=== PATIENT | female | born 1995 | race Caucasian/White ===

== ENCOUNTER 2017-01-06 10:54 | Outpatient (CLI) | payer OTHER ==
[2014-04-24 21:03] VITALS: BP 112/58
== END 2017-01-06 10:55 ==
LOC: LABRHC 10:54
PROVIDERS: ATTEND Physician Assistant
DX: R30.0 Dysuria (principal)
CPT/HCPCS: 87086; 87186

== ENCOUNTER 2017-06-11 19:24 | Emergency (ER) | payer OTHER ==
--- NOTE | 2017-06-11 19:40 | ED Physician Documentation ---
Upper Extremity Injury - HISTORIAN Historian: patient - HPI Chief Complaint: Upper Extremity Injury Onset: just prior to arrival Context: fall (Patient fell and landed on her RUE, No other injuries noted. ) Associated Symptoms: denies: numbness distally, feeling loss Modifying Factors: pain on movement - ROS CONST: no problems. denies: fever, chills - PAST HX Past History: Rt handed, other (adthma) Allergies/Adverse Reactions: Allergies Allergy/AdvReac Type Severity Reaction Status Date / Time No Known Drug Allergies Allergy Verified 06/11/17 19:34 Home Medications: Ambulatory Orders Medication Instructions Recorded Sertraline HCl [Zoloft] 50 mg PO DAILY 06/11/17 - SOCIAL HX Smoking History: less than 1 pack/day (5 per day) Alcohol Use: rarely Drug Use: none - FAMILY HX Family History: no significant history - VITAL SIGNS Vital Signs: Vital Signs Temp Pulse Resp BP Pulse Ox 72 16 105/63 98 06/11/17 20:19 06/11/17 20:19 06/11/17 20:19 06/11/17 20:19 ED Results Lab/Radiology - Radiology Radiology Impressions: Right forearm 2 views History: Pain after fall Findings: The right forearm is unremarkable without fracture, dislocation, arthropathy, or focal bone lesion. - Orders Orders: ED Orders Category Date Time Status FOREARM 2 VIEWS [RAD] Stat Exams 06/11/17 Taken Upper Extremity Injury Physic - Physical Exam General Appearance: alert, moderate distress Hand: normal inspection, non-tender, no evidence of injury, normal ROM Wrist: normal inspection, non-tender, no evidence of injury, normal ROM Elbow/Forearm: No: normal ROM (due to pain), abrasions, bone tenderness, deformity, ecchymosis, limited ROM Shoulder: normal inspection, non-tender, no evidence of injury, normal ROM Neuro/Vascular/Tendon: no vascular compromise, motor nml, sensation nml Skin: No: warm,dry, diaphoretic, cool Resp/CVS: chest non-tender, breath sounds nml, heart sounds nml, no resp. distress, lungs clear, reg. rate & rhythm Discharge Clincal Impression: Contusion of right forearm, initial encounter Referrals: Primary Doctor,No [Primary Care Provider] - 2 Days Additional Instructions: Apply a cool compress to the area of pain for 30 minutes at a time for the next 24 hours. Take some Aleve 2 tablets with food twice a day for the next 2 days. If symptoms do not improve to follow-up with your primary care provider. Condition: Stable Disposition: 01 HOME, SELF-CARE Decision to Admit: NO Date of Decison to Admit: 06/11/17 Decision Time: 20:08
[2017-06-11 19:41] VITALS: BP 105/63
--- NOTE | 2017-06-12 01:44 | Diagnostic Imaging Report ---
SYLVIA MELARA [facility] [id number] [facility].[address] [id number] Report Submission Date: Jun 11, 2017 8:05:48 PM CDT Patient Study Name: SHIVAM BECERRIL Date: Jun 11, 2017 7:52:01 PM CDT Modality Type: CR Gender: F Description: UPPER EXTREMITY : 89 Institution: [facility] Physician: SYLVIA MELARA Right forearm 2 views History: Pain after fall Findings: The right forearm is unremarkable without fracture, dislocation, arthropathy, or focal bone lesion. Electronically signed on Jun 11, 2017 8:05:48 PM CDT by: Derrick ACHARYA
== END 2017-06-11 20:19 | disposition home or self-care (01) ==
LOC: ED 19:24
DX: S50.11XA Contusion of right forearm, initial encounter (principal); X58.XXXA Exposure to other specified factors, initial encounter; Y93.9 Activity, unspecified; Y99.9 Unspecified external cause status
CPT/HCPCS: 73090; 99283

== ENCOUNTER 2017-09-09 16:51 | Outpatient (CLI) | payer OTHER | END 2017-09-09 16:52 | LOC: LABRHC 16:51 | PROVIDERS: ATTEND Physician Assistant | DX: R30.0 Dysuria (principal) | CPT/HCPCS: 87086; 87186 ==

== ENCOUNTER 2017-10-20 10:01 | Emergency (ER) | payer OTHER ==
[2017-10-20 11:19] LABS: BASOPHILS % 0.3 (0.0-1.5); EOSINOPHILS % 3.4 % (0.0-6.8); MEAN CORPUSCULAR HEMOGLOBIN 30.8 pg (28.0-34.0); MEAN CORPUSCULAR VOLUME 92.3 fl (80.0-100.0); MONOCYTES % 4.9 % (0.0-11.0); NEUTROPHILS # 5.8 # k/uL (1.4-7.7)
[2017-10-20 11:23] LABS: CANNABINOIDS NEGATIVE ng/mL (< 50); METHYLENEDIOXYMETHAMPHETAMINE NEGATIVE ng/mL (<500)
[2017-10-20 11:24] LABS: APPEARANCE,URINE CLEAR (CLEAR); COLOR,URINE YELLOW (YELLOW)
[2017-10-20 11:25] LABS: OCCULT BLOOD,URINE NEGATIVE (NEGATIVE); UROBILINOGEN URINE 0.2 Eu (0.2-1.0)
[2017-10-20 12:12] LABS: eGFR (African) > 60; eGFR (Non-African) > 60
--- NOTE | 2017-10-20 12:15 | ED Physician Documentation ---
Chest Pain - HISTORIAN Historian: patient - HPI Stated Complaint: chest pain Chief Complaint: General Adult Timing: sudden onset Duration: waxing, waning Last known Well Date: 10/20/17 Last Known Well Time: 10:00 Context: emotional upset, activity Severity: moderate Quality: sharp, stabbing Chest Pain Radiation: no radiation Chest Pain Signs/Symptoms: denies: nausea, vomiting, diaphoresis, cool extremities, dizziness, dyspnea, tachypnea, tachycardia, hypotension, palpitations, weakness, other Worsened By: nothing Relieved By: nothing Further Comments: yes (22 year old female patient presents with complaint of chest pain that started while at work today. 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 Patient works at local [employer]. Denies SOB, nausea, radiation or diaphoresis.) - ROS CONST: none MS/LYMPH: none GI/: none EYES/ENT: none SKIN/ENDO: none NEURO/PSYCH: anxiety - PAST HX [place] risk factors: no pertinent history DVT/PE Risk Factors: none TAD/AAA risk factors: none Neuro deficit: none GI disease: none Surgeries/Procedures: none Allergies/Adverse Reactions: Allergies Allergy/AdvReac Type Severity Reaction Status Date / Time No Known Drug Allergies Allergy Verified 06/11/17 19:34 strawberry Allergy Verified 10/20/17 10:41 Home Medications: Ambulatory Orders Medication Instructions Recorded Norgestrel-Ethinyl Estradiol 1 each PO DAILY u2 09/09/17 [Cryselle-28 Tablet] - SOCIAL HX Smoking History: cigarettes - FAMILY HX Family HX: denies: none - VITAL SIGNS Vital Signs: Vital Signs Temp Pulse Resp BP Pulse Ox 98.3 F 74 22 104/69 99 10/20/17 10:24 10/20/17 11:30 10/20/17 10:24 10/20/17 10:24 10/20/17 11:30 - REVIEWED ASSESSMENTS Nursing Assessment Reviewed: Yes Vitals Reviewed: Yes Progress - EKG/XRAY/CT EKG: rhythm (SR, no acute changes) ED Results Lab/Radiology - Lab Results Lab Results: Lab Results 10/20/17 10/20/17 10/20/17 11:05 11:05 11:05 WBC RBC Hgb Hct MCV MCH MCHC RDW Plt Count Neut % (Auto) Lymph % (Auto) [place] % (Auto) Eos % (Auto) Baso % (Auto) Neut # (Auto) Lymph # (Auto) [place] # (Auto) Eos # (Auto) Baso # (Auto) Reactive Lymphs % Reactive Lymphs # Sodium Potassium Chloride Carbon Dioxide BUN Creatinine Estimated Creat Clear Est GFR ( Amer) Est GFR (Non-Af Amer) Glucose Calcium Total Bilirubin AST ALT Alkaline Phosphatase Creatine Kinase Troponin I Total Protein Albumin Urine Color Yellow (YELLOW) Urine Appearance Clear (CLEAR) Urine pH 7.0 (5.0 - 8.0) Ur Specific Murray 1.020 (1.010-1.030) Urine Protein Negative mg/dL mg/dL (NEGATIVE) Urine Ketones Negative mg/dL mg/dL (NEGATIVE) Urine Occult Blood Negative (NEGATIVE) Urine Nitrite Negative (NEGATIVE) Urine Bilirubin Negative (NEGATIVE) Urine Urobilinogen 0.2 Eu Eu (0.2-1.0) Ur Leukocyte Esterase Trace H (NEGATIVE) Urine Glucose Negative mg/dL mg/dL (NEGATIVE) Urine HCG, Qual Negative (NEGATIVE) Opiates Screen Negative ng/mL ng/mL (<300) Oxycodone Screen Negative ng/mL ng/mL (<100) Methadone Screen Negative ng/mL ng/mL (<200) Ur Barbiturates Screen Negative ng.mL ng.mL (<200) Tricyclic Antidepress Negative ng/mL ng/mL (<300) Phencyclidine Screen Negative ng/mL ng/mL (< 25) Amphetamines Screen Negative ng/mL ng/mL (<500) U Methamphetamines Scrn Negative ng/mL ng/mL (<500) MDMA Negative ng/mL ng/mL (<500) Benzodiazepines Screen Negative ng/mL ng/mL (<150) Urine Cocaine Screen Negative ng/mL ng/mL (<150) U Cannabinoids Screen Negative ng/mL ng/mL (< 50) 10/20/17 10/20/17 10/20/17 10:23 10:23 10:23 WBC 8.80 K/ul K/ul (4.00-12.00) RBC 4.08 M/ul M/ul (3.90-5.20) Hgb 12.6 g/dL g/dL (12.0-16.0) Hct 37.7 % % (34.5-46.5) MCV 92.3 fl fl (80.0-100.0) MCH 30.8 pg pg (28.0-34.0) MCHC 33.4 g/dL g/dL (30.0-36.0) RDW 13.5 % % (11.3-14.3) Plt Count 292 K/mm3 K/mm3 (130-400) Neut % (Auto) 65.8 % % (39.0-79.0) Lymph % (Auto) 23.5 % % (16.0-50.0) [place] % (Auto) 4.9 % % (0.0-11.0) Eos % (Auto) 3.4 % % (0.0-6.8) Baso % (Auto) 0.3 (0.0-1.5) Neut # (Auto) 5.8 # k/uL # k/uL (1.4-7.7) Lymph # (Auto) 2.1 # k/uL # k/uL (0.6-4.0) [place] # (Auto) 0.4 # k/uL # k/uL (0.0-0.9) Eos # (Auto) 0.3 # k/uL # k/uL (0.0-0.6) Baso # (Auto) 0.0 # k/uL # k/uL (0.0-0.5) Reactive Lymphs % 2.1 % % (0.0-5.0) Reactive Lymphs # 0.2 # k/uL # k/uL (0.0-0.8) Sodium 140 mmol/L mmol/L (136-145) Potassium 3.9 mmol/L mmol/L (3.5-5.1) Chloride 104 mmol/L mmol/L (98-107) Carbon Dioxide 21 mmol/L L mmol/L (22-30) BUN 9 mg/dL mg/dL (7-17) Creatinine 0.50 mg/dL L mg/dL (0.52-1.04) Estimated Creat Clear 179 Est GFR ( Amer) > 60 (60 - ) Est GFR (Non-Af Amer) > 60 (60 - ) Glucose 86 mg/dL mg/dL (74-106) Calcium 9.6 mg/dL mg/dL (8.4-10.2) Total Bilirubin 0.6 mg/dL mg/dL (0.2-1.3) AST 38 U/L U/L (15-46) ALT 34 U/L U/L (13-69) Alkaline Phosphatase 96 U/L U/L (38-126) Creatine Kinase 43 U/L U/L (30-135) Troponin I < 0.03 ng/mL L ng/mL (0.03-0.06) Total Protein 7.4 g/dL g/dL (6.3-8.2) Albumin 4.3 g/dL g/dL (3.5-5.0) Urine Color Urine Appearance Urine pH Ur Specific Murray Urine Protein Urine Ketones Urine Occult Blood Urine Nitrite Urine Bilirubin Urine Urobilinogen Ur Leukocyte Esterase Urine Glucose Urine HCG, Qual Opiates Screen Oxycodone Screen Methadone Screen Ur Barbiturates Screen Tricyclic Antidepress Phencyclidine Screen Amphetamines Screen U Methamphetamines Scrn MDMA Benzodiazepines Screen Urine Cocaine Screen U Cannabinoids Screen - Radiology Radiology Impressions: Chest, 2 view History: CXR, MID CHEST PAIN TODAY, COUGH FOR A FEW WEEKS, SMOKER Findings: The heart size is normal. The lungs are clear. Calcified granuloma is seen within the right lung base. There is no pleural effusion or pneumothorax identified. The osseous structures are normal. Impression: 1. No acute pulmonary disease. Electronically signed on Oct 20, 2017 11:35:27 AM CDT by: Wilfredo Sheriff - Orders Orders: ED Orders Category Date Time Status Continuous EKG monitoring Q30M Care 10/20/17 10:23 Active Continuous Pulse Oximetry Q30M Care 10/20/17 10:23 Active CHEST 2VIEW [RAD] Stat Exams 10/20/17 10:54 Ordered CBC/PLATELET/DIFF Routine Lab 10/20/17 10:23 Completed CMP Routine Lab 10/20/17 10:23 Completed CREATINE KINASE Routine Lab 10/20/17 10:23 Completed TROPONIN I (cTnI) Stat Lab 10/20/17 10:23 Completed UA MACRO DIP ONLY Stat Lab 10/20/17 11:05 Completed URINE CULTURE Routine Lab 10/20/17 11:05 Received URINE HCG Stat Lab 10/20/17 11:05 Completed Urine drug screen [DRUG SCREEN URINE MEDICAL ONLY] Stat Lab 10/20/17 11:05 Completed EKG WITH COMPARISON Stat Ther 10/20/17 10:23 Ordered Chest Pain Physical Exam - EXAM General Appearance: anxious (crying, arguing with boyfriend) Respiratory: no resp. distress, chest non-tender, nml breath sounds CVS: reg. rate & rhythm, no murmur, no gallop, no friction rub, pulses full, pulses equal Abdomen: soft, no organomegaly, normal bowel sounds, no abdominal bruit, no distension Skin: normal color, warm/dry, NR, INT, DR Extremities: non-tender, normal range of motion, no evidence of injury, no edema , J, SALES SUPPORT ASSISTANT Neuro: oriented X3, CN's nml as tested, motor nml, sensation nml, mood/affect nml Discharge Clincal Impression: Non-cardiac chest pain, Anxiety Referrals: Primary Doctor,No [Primary Care Provider] - 2 Days Additional Instructions: Negative work up. Rest Follow up with your primary care doctor if your symptoms return Condition: Stable Disposition: 01 HOME, SELF-CARE Decision to Admit: NO Decision Time: 12:16
[2017-10-20] MEDS: KETOROLAC TROMETHAMINE 30 MG/1ML VIAL IVP ONE (12:27)
[2017-10-20 12:48] VITALS: BP 111/68
--- NOTE | 2017-10-20 18:04 | Diagnostic Imaging Report ---
[facility] [address] [facility].[address] [address] Report Submission Date: Oct 20, 2017 11:35:27 AM CDT Patient Study Name: SHIVAM BECERRIL Date: Oct 20, 2017 11:14:19 AM CDT Modality Type: DX Gender: F Description: CHEST : 89 Institution: [facility] Physician IVONNE BARON (EMERGENCY ROOM SPECIALIST) - ER Chest, 2 view History: CXR, MID CHEST PAIN TODAY, COUGH FOR A FEW WEEKS, SMOKER Findings: The heart size is normal. The lungs are clear. Calcified granuloma is seen within the right lung base. There is no pleural effusion or pneumothorax identified. The osseous structures are normal. Impression: 1. No acute pulmonary disease. Electronically signed on Oct 20, 2017 11:35:27 AM CDT by: Wilfredo ACHARYA
== END 2017-10-20 12:40 | disposition home or self-care (01) ==
LOC: ED 10:01
DX: R07.89 Other chest pain (principal)
CPT/HCPCS: 36415; 71046; 80053; 80377; 81002; 81025; 82550; 84484; 85025; 87086; 93005; J1885; 96374; 99283; G0481

== ENCOUNTER 2017-12-23 10:33 | Outpatient (CLI) | payer OTHER | END 2017-12-23 12:36 | LOC: LAB 10:33 | PROVIDERS: ATTEND Physician Assistant | DX: R10.13 Epigastric pain (principal) | CPT/HCPCS: 36415; 86677 ==

== ENCOUNTER 2019-06-09 05:11 | Emergency (ER) | payer OTHER ==
--- NOTE | 2019-06-09 05:42 | ED Physician Documentation ---
Female Urogenital Problems - HISTORIAN Historian: patient - HPI Stated Complaint: feel like I have a UTI Chief Complaint: Female Urogenital Problems Onset: hours (2) Severity: moderate Location of Pain: other (burning with urination ) Further Comments: yes (She reports at about 0400 she woke and had severe burning with urination. She has no other symptoms. She did take a random Keflex she had at home. No blood in urine . No difficultiy with urination. No low back pain) - Vaginal Bleeding Sexual History: active - Associated Symptoms Urinary Symptoms: discomfort w/ urination, burning w/ urination, pain w/ urination. denies: blood in urine, frequent urination, urgency w/ urination Discharge: denies: vaginal discharge - ROS CONST: none GI/: denies: nausea, vomiting CVS/RESP: none NEURO/PSYCH: none - PAST HX Past History: none Immunizations: UTD Allergies/Adverse Reactions: Allergies Allergy/AdvReac Type Severity Reaction Status Date / Time strawberry Allergy Severe facial Verified 06/09/19 05:42 swelling/ resp issues No Known Drug Allergies Allergy Verified 06/09/19 05:42 - SOCIAL HX Smoking History: non-smoker Alcohol Use: none Drug Use: none - FAMILY HX Family History: none - VITAL SIGNS Vital Signs: Vital Signs Temp Pulse Resp BP Pulse Ox 111/68 10/20/17 12:46 - REVIEWED ASSESSMENTS Nursing Assessment Reviewed: Yes Vitals Reviewed: Yes Female Urogenital Problems - EXAM General Appearance: no acute distress, alert EENT: eye inspection normal, no signs of dehydration Neck: nml inspection Respiratory: no resp. distress, breath sounds nml CVS: reg rate & rhythm, heart sounds normal Abdomen: soft, non-tender. No: tenderness Back: non-tender. No: CVA tenderness Skin: color nml, no rash, warm,dry Extremities: non-tender Neuro: oriented X3 Discharge Clincal Impression: UTI (urinary tract infection) Qualifiers: Urinary tract infection type: acute cystitis Hematuria presence: without hematuria Qualified Code(s): N30.00 - Acute cystitis without hematuria Referrals: Primary Doctor,No [Primary Care Provider] - 2 Days Comments: 1. Bactrim DS take 1 by mouth twice daily x 10 days 2. Pyridum 100 mg take 1 by mouth three times per day x 3 days 3. Increase water 4. Void after intercourse 5. Void when you feel the urge 6. Follow up with PCP if no improvement in 2-4 days 7. Return to ER for any increased concerns Condition: Stable Disposition: 01 HOME, SELF-CARE Decision to Admit: NO Date of Decison to Admit: 06/09/19 Decision Time: 05:52
[2019-06-09] MEDS: SULFAMETHOXAZOLE/TRIMETHOPRIM 800/160MG TAB PO ONE (05:48)
[2019-06-09] MEDS: PHENAZOPYRIDINE HCL 200 MG TABLET PO ONE (05:48)
[2019-06-09 06:01] VITALS: BP 124/60
[2019-06-09 10:06] LABS: APPEARANCE,URINE CLOUDY (CLEAR); COLOR,URINE YELLOW (YELLOW)
[2019-06-09 10:07] LABS: OCCULT BLOOD,URINE 2+ (NEGATIVE); UROBILINOGEN URINE 0.2 Eu (0.2-1.0)
== END 2019-06-09 06:00 | disposition home or self-care (01) ==
LOC: ED 05:11
DX: N30.00 Acute cystitis without hematuria (principal); B96.20 Unspecified Escherichia coli [E. coli] as the cause of diseases classified elsewhere
CPT/HCPCS: 81002; 87086; 87186; 99283; A9270